=== PATIENT | female | born 2000 | race Caucasian/White ===

== ENCOUNTER 2021-01-02 18:44 | Emergency (ER) | payer SELFPAY ==
[2021-01-02 18:56] VITALS: BP 134/90; PULSE 99; RESP 18; TEMP 37.1; O2SAT 99; BMI 62.3
--- NOTE | 2021-01-02 19:10 | XRR_ITS ---
PROCEDURE INFORMATION: Exam: XR Left Foot Exam date and time: 01/02/2021 7:17 PM Age: 20 years old Clinical indication: Injury or trauma; Fall; Blunt trauma; Foot; Injury date: 01/02/21; Injury details: PT fell outside, left lower extremity pain, 8/10 pain in ankle; Additional info: Fall, pain TECHNIQUE: Imaging protocol: XR Left foot. Views: 3 or more views. COMPARISON: No relevant prior studies available. FINDINGS: Bones/joints: Normal. Soft tissues: Normal. XR/XR foot LT min 3V* [id number] IMPRESSION: No acute findings.
--- NOTE | 2021-01-02 19:10 | XRR_ITS ---
PROCEDURE INFORMATION: Exam: XR Left Ankle Exam date and time: 01/02/2021 7:17 PM Age: 20 years old Clinical indication: Injury or trauma; Fall; Blunt trauma; Injury date: 01/02/21; Patient HX: PT fell outside, left lower extremity pain, 8/10 pain scale in ankle; Additional info: Fall, pain TECHNIQUE: Imaging protocol: XR Left ankle. Views: 3 or more views. COMPARISON: No relevant prior studies available. FINDINGS: Bones/joints: Normal. Soft tissues: Normal. XR/XR ankle LT min 3V* [id number] IMPRESSION: No acute findings.
--- NOTE | 2021-01-02 19:10 | W.ED.EXTPRO ---
HPI - Extremity Problem General: Chief complaint: Extremity Injury, Lower Stated complaint: Left Foot/Leg Injury/Fall Time Seen by Provider: 01/02/21 19:07 History of Present Illness: HPI Narrative: Patient states she fell about an hour ago slipping on wet grass injuring her left ankle and foot and now she is not able to bear weight due to pain. And has not had period in couple months also. MD Complaint: extremity pain Onset (ago): minute(s) Pain Consistency: constant Location: left and lower extremity Severity scale (1-10): 5 Quality: aching Radiation: none Relieving factors: immobilization Exacerbating factors: weight bearing Associated symptoms: Reports no associated symptoms; Deny chest pain, fever(s) or rash Review of Systems Const: Denies: fever(s), chills or body aches Eyes: Denies: change in vision or blurry vision ENMT: Denies: throat pain or nasal congestion Card: Denies: chest pain or dyspnea on exertion Resp: Denies: dyspnea, productive cough or non-productive cough GI: Denies: abdominal pain, nausea or vomiting : Reports: amenorrhea Musc: Reports: extremity pain and joint pain (Left ankle and foot) Skin/Breast: Denies: rash Neuro: Denies: headache(s) Psych: Denies: anxiety or depression Huber/Lymph: Denies: easy bruising [facility] ED Female Reproductive History: Date of last menstrual period: 10/31/20 Physical Exam Const: COMMON NORMALS: no acute distress, average body habitus and patient oriented x3 HENMT: COMMON NORMALS: normocephalic HEAD & SCALP: normal to inspection and normocephalic FACE & SINUS: normal facial exam Eye: COMMON NORMALS: conjunctivae normal GENERAL EYE: appearance normal, both eyes and all related structures CONJUNCTIVA: Yes conjunctivae normal Neck/C-Spine: COMMON NORMALS: no JVD Chest: COMMONS NORMALS: normal inspection of the chest Resp: COMMON NORMALS: normal respiratory effort and clear to auscultation bilaterally AUSCULTATION: clear to auscultation bilaterally Cardio: COMMON NORMALS: no JVD, regular rate and regular rhythm RATE: regular rate RHYTHM: regular rhythm GI: COMMON NORMALS: Normal to inspection, nondistended, normoactive bowel sounds present Extremity: COMMON NORMALS: normal to inspection and full ROM LEFT LOWER EXTREMITY: Yes ankle joint (Tender with range of motion mild swelling some redness) and Yes foot & digits (Tender midfoot no swelling.) Neuro: COMMON NORMALS: patient oriented x3 Course Vital Signs: Vital signs: Vital Signs Temperature 98.8 F 01/02/21 18:56 Pulse Rate 99 01/02/21 18:56 Respiratory Rate 18 01/02/21 18:56 Blood Pressure 134/90 01/02/21 18:56 Pulse Oximetry 99 01/02/21 18:56 Coding Level of Care Code ED Control Officer Manager for Kev Ruiz
[2021-01-02 19:53] LABS: HCG, Serum Qual Negative (Negative)
== END 2021-01-02 20:26 | disposition home or self-care (01) ==
PROVIDERS: Emergency Provider Nurse Practitioner Family
DX: M79.672 Pain in left foot (principal); M25.572 Pain in left ankle and joints of left foot; N91.2 Amenorrhea, unspecified; W19.XXXA Unspecified fall, initial encounter
CPT/HCPCS: 73610; 73630; 84703; 99283

== ENCOUNTER → 2021-09-24 13:38 | Outpatient (BNVA) | payer OTHER, SELFPAY | PROVIDERS: Visit Provider Nurse Practitioner | DX: Z20.822 Contact with and (suspected) exposure to COVID-19 (principal) | CPT/HCPCS: 87635 ==

== ENCOUNTER 2021-12-19 12:55 | Outpatient (CLI) | payer OTHER, SELFPAY ==
--- NOTE | 2021-12-19 13:03 | US_ITS ---
WS: [id number] TRANSVAGINAL PELVIC ULTRASOUND HISTORY: MISSED PERIOD COMPARISON: None available. Uterus: 6.8 cm x 4.3 cm x 3.1 cm. Normal size anteverted uterus. No fibroid or mass. Endometrium: 1.1 cm. Normal homogeneity. Right ovary: 2.5 cm x 2.3 cm x 2.5 cm. Normal size and vascularity, no cystic or solid masses. Left ovary: Not visualized. No LEFT adnexal mass. US/US transvaginal [id number] IMPRESSION: 1. Normal endometrium. 2. LEFT ovary not identified.
== END 2021-12-19 12:56 | disposition home or self-care (01) ==
LOC: RAD 12:57
PROVIDERS: Visit Provider Family Medicine
DX: N91.2 Amenorrhea, unspecified (principal)
CPT/HCPCS: 76830

== ENCOUNTER 2022-06-14 15:28 | Emergency (ER) | payer MEDICAID, SELFPAY ==
--- NOTE | 2022-06-14 15:42 | USR_ITS ---
PROCEDURE INFORMATION: Exam: US Duplex Artery or Vein of the Abdominal and/or Reproductive Organs, Limited Ovaries Exam date and time: 06/14/2022 3:57 PM Age: 22 years old Clinical indication: Other: Vaginal bleeding [id number]; Pelvic pain; Additional info: Irregular vaginal bleeding, pain TECHNIQUE: Imaging protocol: Real-time duplex ultrasound scan of the arterial or venous flow with puri scale, color Doppler flow and spectral waveform analysis with image documentation. Limited duplex exam focused on the ovaries. Duplex exam was performed to evaluate for torsion and other vascular conditions. COMPARISON: US transvaginal [id number] 12/19/2021 1:34 PM FINDINGS: Right ovary/adnexa: Normal duplex of the ovary. Normal Doppler waveforms and color flow. No evidence of ovarian torsion. Left ovary/adnexa: Normal duplex of the ovary. Normal Doppler waveforms and color flow. No evidence of ovarian torsion. PROCEDURE INFORMATION: Exam: US Pelvis, Transvaginal Exam date and time: 06/14/2022 3:57 PM Age: 22 years old Clinical indication: Other: Vaginal bleeding [id number]; Pelvic pain; Additional info: Irregular vaginal bleeding, pain TECHNIQUE: Imaging protocol: Real-time transvaginal pelvic ultrasound with image documentation. Transvaginal imaging was used for better evaluation of the endometrium, adnexa, and/or cervix. COMPARISON: US transvaginal [id number] 12/19/2021 1:34 PM FINDINGS: Uterus: The uterus is anteverted measures about 7.3 x 3.2 x 4.1 cm. Cervix is otherwise unremarkable with a few tiny nabothian cysts. Endometrium measuring 8 mm in thickness with which is slightly irregular and minimally heterogeneous. However no discrete polypoid lesions or feeding vessels could be limited by color Doppler. No significant fluid/debris. No large uterine myoma or obvious imaging signs of adenomyosis. Cervix: Suboptimally visualized cervix. Right ovary/adnexa: Right ovary measures 2.4 x 2.9 x 1.8 cm. A few tiny simple follicles are seen bilaterally. No suspicious adnexal region masses or ovarian stromal edema on either side. There is flow in both ovarian parenchyma demonstrating normal spectral waveforms. Left ovary/adnexa: Multiple transvaginal pelvic ultrasound images were obtained including duplex imaging due to pain and to exclude ovarian torsion. Transabdominal examination was not performed. Urinary bladder is suboptimally assessed due to nondistention. Left ovary measures 3.2 x 3.3 x 2.2 cm. Intraperitoneal space: No significant free pelvic fluid. US/US transvaginal [id number] IMPRESSION: Normal duplex of the ovaries. No evidence of ovarian torsion. IMPRESSION: 1. Slightly heterogeneous endometrial echo with no obvious discrete mass. Clinical correlation and follow-up should be obtained. 2. Otherwise unremarkable exam.
--- NOTE | 2022-06-14 15:48 | W.ED.GENADLT ---
HPI - General Adult General: Chief complaint: Vaginal Bleeding Stated complaint: vaginal bleeding Time Seen by Provider: 06/14/22 15:41 History of Present Illness: 22-year-old female comes in today for complaints of increased vaginal bleeding. Patient reports significant bleeding over the last 18 days. Patient has had 1 previous episode of a similar event which resolved on its own. Patient reports going through 1-2 pads an hour. Patient denies any urinary difficulty or abnormal vaginal discharge. Patient is morbidly obese, denies any chronic medical issues or routine medicines. Associated symptoms: Deny chest pain or dyspnea Review of Systems Const: Denies: fever(s) Card: Denies: chest pain Resp: Denies: dyspnea : Reports: vaginal bleeding PFS ED PFSH: Social History Smoking and tobacco status: current every day smoker Female Reproductive History: Date of last menstrual period: 05/28/22 Physical Exam Const: COMMON NORMALS: alert HENMT: COMMON NORMALS: normocephalic HEAD & SCALP: normocephalic Neck/C-Spine: COMMON NORMALS: full ROM Resp: COMMON NORMALS: normal respiratory effort and clear to auscultation bilaterally AUSCULTATION: clear to auscultation bilaterally Cardio: COMMON NORMALS: regular rate and regular rhythm RATE: regular rate RHYTHM: regular rhythm Extremity: COMMON NORMALS: full ROM Neuro: SENSORIUM/ORIENTATION: Yes alert Skin: COMMON NORMALS: turgor normal GENERAL SKIN EXAM: turgor normal Course Vital Signs: Vital signs: Vital Signs Pulse Rate 95 06/14/22 17:51 Respiratory Rate 22 H 06/14/22 16:30 Blood Pressure 169/92 06/14/22 17:38 Pulse Oximetry 98 06/14/22 17:51 Oxygen Delivery Ky thod 06/14/22 16:30 [facility] - General Adult Medical Decision Making Patient comes in today for complaints of increased bleeding during menstrual cycle. Patient is report bleeding for the last 18 days. Patient reports episodes of bleeding through 1-2 pads an hour. Patient appears nontoxic. Abdomen soft nontender. Patient is obese. Vital signs are normal except for some elevation of blood pressure at 166 systolic. Differential diagnosis includes uterine mass, spontaneous , ectopic , endometriosis, dysfunctional uterine bleeding. CBC noted a hemoglobin of 12.3, CMP was unremarkable, quantitative hCG was less than 1. Ultrasound noted no evidence of ovarian torsion or significant abnormalities except for some heterogeneous endometrium. Recommend patient be placed on norethindrone acetate 5 mg daily for the next 14 days to stop bleeding. Patient should follow-up with NEUROLOGY SPECIALIST for further treatment and evaluation. Patient reported understanding and agreed to plan. Lab Data : 06/14/22 16:50 06/14/22 16:50 Radiology Impressions Transvaginal US 06/14/22 15:42 IMPRESSION: Normal duplex of the ovaries. No evidence of ovarian torsion. IMPRESSION: 1. Slightly heterogeneous endometrial echo with no obvious discrete mass. Clinical correlation and follow-up should be obtained. 2. Otherwise unremarkable exam. Laboratory Results WBC 8.8 10^3/uL (4.0-10.0) 06/14/22 16:50 RBC 4.58 10^6/uL (4.1-5.3) 06/14/22 16:50 Hgb 12.3 g/dL (11.5-15.3) 06/14/22 16:50 Hct 39.7 % (37.0-47.0) 06/14/22 16:50 MCV 86.7 fl (81-99) 06/14/22 16:50 MCH 26.9 pg (28.0-34.0) L 06/14/22 16:50 MCHC 31.0 g/dL (30.0-36.0) 06/14/22 16:50 RDW 13.1 % (12.1-15.1) 06/14/22 16:50 Plt Count 312 10^3/cmm (130-400) 06/14/22 16:50 MPV 10.8 fL (7.4-10.4) H 06/14/22 16:50 Neut % (Auto) 59.1 % 06/14/22 16:50 Lymph % (Auto) 30.3 % 06/14/22 16:50 [place] % (Auto) 7.1 % 06/14/22 16:50 Eos % (Auto) 2.2 % 06/14/22 16:50 Baso % (Auto) 0.7 % 06/14/22 16:50 Neut # (Auto) 5.22 10^3/uL (1.8-7.7) 06/14/22 16:50 Lymph # (Auto) 2.7 10^3/uL (0.8-4.8) 06/14/22 16:50 [place] # (Auto) 0.6 10^3/uL (0.2-0.9) 06/14/22 16:50 Eos # (Auto) 0.2 10^3/uL (0.0-0.8) 06/14/22 16:50 Baso # (Auto) 0.1 10^3/uL (0.0-0.1) 06/14/22 16:50 Nucleated RBC % (auto) 0 % 06/14/22 16:50 Nucleated RBCs # 0.0 /100WBC 06/14/22 16:50 Sodium 138 mmol/L (136-145) 06/14/22 16:50 Potassium 4.1 mmol/L (3.5-5.1) 06/14/22 16:50 Chloride 102 mmol/L (98-107) 06/14/22 16:50 Carbon Dioxide 24 mmol/L (22-29) 06/14/22 16:50 Anion Gap 16.1 (5-19) 06/14/22 16:50 BUN 14 mg/dL (6-20) 06/14/22 16:50 Creatinine 0.5 mg/dL (0.5-0.9) 06/14/22 16:50 GFR Calculation 154.3 mL/min (90-130) H 06/14/22 16:50 Glucose 98 mg/dL (65-115) 06/14/22 16:50 Calculated Osmolality 286 mOsm/kg (285-295) 06/14/22 16:50 Calcium 9.2 mg/dL (8.5-10.5) 06/14/22 16:50 Total Bilirubin 0.3 mg/dL (0.15-1.2) 06/14/22 16:50 AST 17 U/L (0-32) 06/14/22 16:50 ALT 22 U/L (0-33) 06/14/22 16:50 Alkaline Phosphatase 63 U/L (35-105) 06/14/22 16:50 Total Protein 6.9 g/dL (6.6-8.7) 06/14/22 16:50 Albumin 4.0 g/dL (3.5-5.2) 06/14/22 16:50 Globulin 2.9 g/dL (1.3-4.6) 06/14/22 16:50 Ser , Semi-Qnt 1.00 mIU/mL 06/14/22 16:50 Urine Color Yellow (Yellow) 06/14/22 16:45 Urine Appearance Cloudy (CLEAR) A 06/14/22 16:45 Urine pH 5 (5-7) 06/14/22 16:45 Ur Specific [place] 1.025 (1.005-1.030) 06/14/22 16:45 Urine Protein Trace (Negative) 06/14/22 16:45 Urine Glucose (UA) Norm (Normal) 06/14/22 16:45 Urine Ketones Negative (Negative) 06/14/22 16:45 Urine Blood 3+ (Negative) H 06/14/22 16:45 Urine Nitrate Negative (Negative) 06/14/22 16:45 Urine Bilirubin Neg (Negative) 06/14/22 16:45 Urine Urobilinogen Norm mg/dL (Negative) 06/14/22 16:45 Ur Leukocyte Esterase Trace (Negative) H 06/14/22 16:45 Urine RBC 80-100 /hpf (0-2) H 06/14/22 16:45 Urine WBC 5-10 /hpf (0-5) H 06/14/22 16:45 Ur Squamous Epith Cells 5-10 /hpf (0-5) H 06/14/22 16:45 Ur Transition Epith Cell 0-4 /hpf 06/14/22 16:45 Amorphous Sediment Not Reportable 06/14/22 16:45 Urine Bacteria 2+ /hpf (NONE) H 06/14/22 16:45 Urine Mucus 1+ /hpf 06/14/22 16:45 Blood Type O Positive 06/14/22 16:50 Rho(D) Type Positive 06/14/22 16:50 Discharge Plan Discharge Patient Disposition: Home Clinical Impression: Dysfunctional uterine bleeding Condition: Stable Prescriptions: New norethindrone acetate 5 mg tablet 5 mg PO DAILY 14 Days Qty: 14 0RF No Action Tylenol Extra Strength 500 mg Tablet 500 - 1,000 mg PO Q6H PRN (Reason: FEVER/PAIN) ibuprofen 200 mg Tablet 200 mg PO Q6H PRN (Reason: FEVER/PAIN) Discharge Orders: Discharge ED (Routine); Ordered 06/14/22 Ordered By: Jorge Arvizu Discharge Diet: Usual diet Discharge Activity: Increase activity as tolerated Patient Instructions: Abnormal (Dysfunctional) Uterine Bleeding (ED) Activity Restrictions/Additional Instructions: Drink plenty of water. Use medication norephedrine acetate 5 mg daily for the next 2 weeks unless otherwise directed by physician. Case management will contact you regarding follow-up appointment with NEUROLOGY SPECIALIST. Return to the emergency department for worsening symptoms such as severe lightheadedness, passing out, increased bleeding, or fever greater than 100.4. Coding Level of Care Code ED Charter Coach Driver for Kev Ruiz
[2022-06-14 16:30] VITALS: BP 166/105; PULSE 125; RESP 22; O2SAT 97
[2022-06-14 16:40] VITALS: BP 134/92; BP 160/94; BP 166/105; PULSE 118; PULSE 94; PULSE 99
[2022-06-14 17:13] LABS: Basophils # 0.1 10^3/uL (0.0-0.1); Basophils % 0.7 %; Eosinophils # 0.2 10^3/uL (0.0-0.8); Eosinophils % 2.2 %; Hematocrit 39.7 % (37.0-47.0); Hemoglobin 12.3 g/dL (11.5-15.3); Lymphocytes # 2.7 10^3/uL (0.8-4.8); Lymphocytes % 30.3 %; Mean Corpuscular Hemoglobin 26.9 pg (28.0-34.0); Mean Corpuscular Volume 86.7 fl (81-99); Mean Platelet Volume 10.8 fL (7.4-10.4); Monocytes # 0.6 10^3/uL (0.2-0.9); Monocytes % 7.1 %; Neutrophils # 5.22 10^3/uL (1.8-7.7); Neutrophils % 59.1 %; Nucleated Red Blood Cells % 0 %; Platelet Count 312 10^3/cmm (130-400); Red Blood Count 4.58 10^6/uL (4.1-5.3); Red Cell Distribution Width 13.1 % (12.1-15.1); White Blood Count 8.8 10^3/uL (4.0-10.0)
[2022-06-14 17:35] LABS: Alanine Aminotransferase 22 U/L (0-33); Alkaline Phosphatase 63 U/L (35-105); Anion Gap 16.1 (5-19); Aspartate Amino Transferase 17 U/L (0-32); Blood Urea Nitrogen 14 mg/dL (6-20); Calcium 9.2 mg/dL (8.5-10.5); Carbon Dioxide 24 mmol/L (22-29); Chloride 102 mmol/L (98-107); Globulin 2.9 g/dL (1.3-4.6); Glomerular Filtration Rate 154.3 mL/min (90-130); Glucose 98 mg/dL (65-115); Osmolality Calculated 286 mOsm/kg (285-295); Potassium 4.1 mmol/L (3.5-5.1); Sodium 138 mmol/L (136-145); Total Bilirubin 0.3 mg/dL (0.15-1.2); Total Protein 6.9 g/dL (6.6-8.7)
[2022-06-14 17:38] VITALS: BP 169/92; O2SAT 96
[2022-06-14 17:39] LABS: Add Urine Microscopic? YES; Bilirubin Urine Neg (Negative); Blood Urine 3+ (Negative); Glucose Urine UA Norm (Normal); Ketones Urine Negative (Negative); Leukocyte Esterase Urine Trace (Negative); Nitrate Urine Negative (Negative); Protein Urine Trace (Negative); Specific Gravity, Urine 1.025 (1.005-1.030); Urine Appearance Cloudy (CLEAR); Urine Color Yellow (Yellow); Urobilinogen Urine Norm (Negative); pH Urine 5 (5-7)
[2022-06-14 17:41] LABS: Bacteria Urine 2+ /hpf; Mucus Urine 1+ /hpf; RBC Urine 80-100 /hpf (0-2); Transitional Epi Cells Urine 0-4 /hpf
[2022-06-14 17:42] LABS: Add Urine Culture? Yes
[2022-06-14 17:51] VITALS: PULSE 95; O2SAT 98
--- NOTE | 2022-06-16 12:11 | DCPLANNER ---
Addendum entered by Christen Castillo 09/12/22 13:19: Patient had a follow up appointment scheduled with [facility] - patient did attend appointment Addendum entered by Christen Castillo 06/19/22 16:47: Patient has a follow up appointment scheduled for , August 28, 2022 at 2:[address] Cadena at [facility]. Clinic will call patient with appointment information. Original Note: food and beverage service manager had message to schedule a follow up appointment for patient with [facility]. food and beverage service manager sent patients information to the front office staff at [facility]. Patients information will be printed and reviewed. Clinic will call patient with appointment information.
== END 2022-06-14 17:52 | disposition home or self-care (01) ==
PROVIDERS: Emergency Provider Nurse Practitioner Family
DX: N93.9 Abnormal uterine and vaginal bleeding, unspecified (principal)
CPT/HCPCS: 36415; 76830; 80053; 81001; 84702; 85025; 86900; 87086; 99284